=== PATIENT | male | born 1955 | race African-American/Black ===

== ENCOUNTER → 2019-05-13 | Outpatient (CLI) | payer OTHER, BC ==
--- NOTE | 2019-05-13 10:18 | RAD ---
ABDOMEN COMPLETE History: Right upper quadrant pain, abnormal liver function tests Comparison: None. Findings: Multiple sonographic images of the abdomen are submitted. There is no abnormality of the visualized pancreas. Abdominal aortic caliber is within normal limits, scattered plaque. Right kidney measured 9.9 x 5.5 x 4.2 cm. The left kidney measured 11.5 x 5.4 x 4.1 cm. There is no hydronephrosis of either kidney. There is a small hypoechoic lesion of the inferior right kidney about 1.2 cm in greatest dimension not associated with vascularity on color Doppler imaging. Spleen measured about 10 cm. Common bile duct is within normal limits at 0.4 cm. Hepatic echotexture is within normal limits, no focal hepatic lesion demonstrated by ultrasound. Right lobe of the liver measured 17.4 cm longitudinal. Gallbladder is present without intraluminal abnormality, wall thickening, pericholecystic fluid. Impression: 1. Other than small inferior right renal cyst, other significant abnormality is demonstrated. Electronically signed by: Bob Carey MD (05/13/2019 10:15 AM) [id number]
== END | disposition home or self-care (01) ==
LOC: US 11:36
PROVIDERS: ATTEND Internal Medicine Hematology & Oncology
DX: N28.1 Cyst of kidney, acquired (principal); N28.9 Disorder of kidney and ureter, unspecified; I70.0 Atherosclerosis of aorta
CPT/HCPCS: 76700